=== PATIENT | male | born 1965 | race Hispanic/Latino ===

== ENCOUNTER 2023-08-31 17:43 | Emergency (ER) | payer BC ==
[~2023-08-31 17:43] MED LIST: Iopamidol 370 76% 100 ML VIAL ONE
[2023-08-31] MEDS ORDERED: Nitroglycerin 2% Ointment 1 INCH/1 GM Packet ONE (18:14)
[2023-08-31 18:26] LABS: #Basophils 0.02 10x3/uL (0.0-0.2); #Eosinphils 0.06 10x3/uL (0.0-0.5); #Monocytes 0.33 10x3/uL (0.0-1.1); %Basophils 0.4 % (0.0-2.0); %Eosinophils 1.1 % (0.0-6.0); %Lymphocytes 15.6 % (18.0-47.0); %Monocytes 5.9 % (0.0-10.0); %Neutrophils 76.8 % (40.0-75.0); Hematocrit 35.6 % (38.8-50.0); Mean Corpuscular HGB CONC 33.7 g/dL (32.0-36.0); Mean Corpuscular Hemoglobin 36.6 pg (27.0-33.0); Mean Corpuscular Volume 108.5 fl (81.2-95.1); Platelet Count 160 10x3/uL (150-450); RBC Distribution Width 12.7 % (11.5-14.5); Red Blood Cell (RBC) Count 3.28 10x6/uL (4.32-5.72); White Blood Cell (WBC) Count 5.6 10x3/uL (3.5-10.5)
[2023-08-31 18:32] LABS: ALT (SGPT) 21 U/L (8-55); AST (SGOT) 37 U/L (5-34); Albumin 4.1 g/dL (3.5-5.0); Alkaline Phosphatase 85 U/L (40-110); Anion Gap 17 mmol/L (10-20); BUN (Urea Nitrogen) 22 mg/dL (8.4-25.7); Bilirubin, Total 0.6 mg/dL (0.2-1.2); Calc. Creatinine Clearance 0 mL/min (70-130); Calcium 9.3 mg/dL (7.8-10.44); Carbon Dioxide 22 mmol/L (22-29); Chloride 104 mmol/L (98-107); Estimated GFR 41; Globulin 3.8 g/dL (2.4-3.5); Glucose 132 mg/dL (70-105); Potassium 3.9 mmol/L (3.5-5.1); Protein, Total 7.9 g/dL (6.0-8.3); Sodium 139 mmol/L (136-145)
[2023-08-31 18:36] LABS: Troponin I 0.064 ng/mL (< 0.028)
[2023-08-31] MEDS ORDERED: Furosemide 40 MG (4 mL) VIAL ONE (19:40)
[2023-08-31] MEDS ORDERED: Aspirin Chewable 81 MG TAB ONE (19:40)
[2023-08-31] MEDS ORDERED: Enoxaparin 80 MG (0.8 mL) SYRINGE ONE (20:14)
[2023-08-31] MEDS ORDERED: Nitroglycerin 0.4 MG TAB 1 EACH ONE ×2 (20:15→22:39)
[2023-08-31 21:00] LABS: PTT 25.6 sec (22.0-33.0); Prothrombin Time 10.5 sec (9.5-12.1)
[2023-08-31 21:02] LABS: Lipase 54 U/L (8-78); Magnesium 2.1 mg/dL (1.6-2.6)
== END 2023-08-31 22:57 | disposition short-term general hospital (02) ==
LOC: CSHERS 17:43
DX: I11.0 Hypertensive heart disease with heart failure (principal); I50.9 Heart failure, unspecified; R09.02 Hypoxemia; E11.9 Type 2 diabetes mellitus without complications
CPT/HCPCS: 36415; 71045; 71275; 80053; 83605; 83690; 83735; 83880; 84443; 84484; 85025; 85610; 85730; 93005; 96372; 96374; J1650; J1940